=== PATIENT | female | born 1980 | race Caucasian/White ===

== ENCOUNTER → 2018-04-25 | Outpatient (CLI) | payer OTHER ==
--- NOTE | 2018-04-25 11:15 | US ---
EXAMINATION TYPE: Transabdominal DATE OF EXAM: 08/14/17 COMPARISON: NONE CLINICAL HISTORY: Z36 CONFIRM DATES. Confirm Dates, pt has no complaints at this time . Positive beta -hCG test. EXAM PERFORMED: Transvaginal (TV) and Transabdominal (TA) EXAM MEASUREMENTS: GESTATIONAL AGE / DATING Physician Established: (10 weeks/4 days) EDC: 11/17/2018 Dates by LMP: (10 weeks/4 days) EDC: 11/17/2018 Dates by First Scan: No prior Dates by Current Scan for: (5 weeks/6 days) EDC: 12/20/2018 MATERNAL ANATOMY Uterus: 10.5 x 5.0 x 6.1 cm Right Ovary: 3.3 x 1.9 x 2.7 cm Left Ovary: 3.4 x 2.0 x 3.2 cm Post CDS / Adnexa: wnl Presence of free fluid: No Presence of corpus luteal cyst: Left Ovary= 1.8 x 1.6 x 2.0 cm Presence of subchorionic bleed: No GESTATION / SURVEY CRL: Not visualized at this time MSD: 1.6 cm (5 weeks/6 days) Yolk Sac (normal less than 6mm): 3mm Heterogeneous anteverted uterus is present. Endometrium is thickened up to 33 mm. In the periphery th ere is irregular anechoic lesion measuring 1.7 x 1.2 x 1.3 cm. Within this there is 3 mm round hypere choic round structure. Findings could reflect gestational sac and yolk sac. No significant surroundin g decidual reaction is seen. Lobulated contour to gestational sac is also concerning. No pole i s present. No free fluid is seen in pelvic cul-de-sac. Both ovaries are identified. Within left ovary there is 1.8 cm round anechoic lesion with thin septa could reflect corpus luteal cyst. No suspicious extraovarian adnexal masses are present. IMPRESSION: Findings could reflect too early to visualize intrauterine but spontaneous is in d ifferential and ectopic is not excluded. Short-term serial beta hCG and ultrasound follow-u p is advised.
== END | disposition home or self-care (01) ==
LOC: RADUSWWP 09:39
PROVIDERS: ATTEND Obstetrics & Gynecology
DX: Z36.89 Encounter for other specified antenatal screening (principal)
CPT/HCPCS: 76801; 76817

== ENCOUNTER → 2018-04-27 | Outpatient (CLI) | payer OTHER | END | disposition home or self-care (01) | LOC: LABMAIN 12:40 | PROVIDERS: ATTEND Obstetrics & Gynecology | DX: O26.819 Pregnancy related exhaustion and fatigue, unspecified trimester (principal); Z3A.00 Weeks of gestation of pregnancy not specified | CPT/HCPCS: 36415; 84702 ==

== ENCOUNTER → 2018-04-29 | Outpatient (CLI) | payer OTHER | END | disposition home or self-care (01) | LOC: LABWHC1 11:06 | PROVIDERS: ATTEND Obstetrics & Gynecology | DX: Z34.80 Encounter for supervision of other normal pregnancy, unspecified trimester (principal) | CPT/HCPCS: 36415; 84702 ==

== ENCOUNTER → 2018-12-18 | Outpatient (CLI) | payer OTHER ==
--- NOTE | 2018-12-18 15:47 | US ---
EXAMINATION TYPE: Transabdominal DATE OF EXAM: 12/18/2018 3:34 PM COMPARISON: NONE CLINICAL HISTORY: Z36 CONFIRM DATES. Dates EXAM PERFORMED: Transabdominal (TA) EXAM MEASUREMENTS: GESTATIONAL AGE / DATING Dates by LMP: (11 weeks/6 days) EDC: 07/03/2019 Dates by Current Scan for: (11 weeks/5 days) EDC: 07/04/2019 MATERNAL ANATOMY Uterus: 14.5 x 8.1 x 6.5 cm Right Ovary: 2.8 x 1.5 x 1.5 cm Left Ovary: 3.1 x 1.9 x 1.7 cm Post CDS / Adnexa: no free fluid Presence of free fluid: no Presence of corpus luteal cyst: no Presence of subchorionic bleed: no GESTATION / SURVEY CRL: 5.0 cm (11 weeks/5 days) MSD: seen, not measured Yolk Sac (normal less than 6mm): Not visualized Heart Rate: 156 bpm Rhythm: Normal IUP: Live IUP Date of LMP: 09/26/2018, Single live IUP measuring 11 weeks 5 days IMPRESSION: Single live intrauterine with a sonographic age of 11 weeks and 5 days and estimated date o f delivery of 07/04/2019, concordant with menstrual age.
== END | disposition home or self-care (01) ==
LOC: RADUSWWP 14:54
PROVIDERS: ATTEND Obstetrics & Gynecology
DX: O09.511 Supervision of elderly primigravida, first trimester (principal); Z3A.11 11 weeks gestation of pregnancy
CPT/HCPCS: 76801

== ENCOUNTER 2019-07-01 00:57 | Inpatient (IN) | payer OTHER ==
[2019-07-01] MEDS: LACTATED RINGERS 1,000 ML IV SCH ×3 (01:35→10:23)
[2019-07-01] MEDS ORDERED: METHYLERGONOVINE 0.2 MG/ML 1 ML AMP IM PRN (01:40)
[2019-07-01] MEDS ORDERED: OXYTOCIN 10 UNIT/ML 1 ML VIAL IM PRN (01:40)
[2019-07-01] MEDS ORDERED: CARBOPROST TROMETHAMINE 250 MCG/ML 1 ML AMP IM PRN (01:40)
[2019-07-01] MEDS ORDERED: TERBUTALINE 1 MG/ML VIAL SQ PRN (01:40)
[2019-07-01] MEDS ORDERED: LIDOCAINE 0.5% (PF) 5 MG/ML (50 ML SDV) SQ PRN (01:40)
[2019-07-01 01:52] LABS: Basophils % (A) 0 %; Eosinophils % (A) 1 %; HCT 38.9 % (34.0-46.0); HGB 13.1 gm/dL (11.4-16.0); Lymphocytes # (A) 0.8 k/uL (1.0-4.8); Lymphocytes % (A) 10 %; MCH 31.6 pg (25.0-35.0); MCHC 33.8 g/dL (31.0-37.0); MCV 93.4 fL (80.0-100.0); Mean Platelet Volume 9.4; Monocytes # (A) 0.4 k/uL (0-1.0); Monocytes % (A) 6 %; Neutrophils # (A) 6.1 k/uL (1.3-7.7); Neutrophils % (A) 81 %; Platelet Count 182 k/uL (150-450); RBC 4.16 m/uL (3.80-5.40); RDW 13.8 % (11.5-15.5); WBC 7.5 k/uL (3.8-10.6)
--- NOTE | 2019-07-01 02:39 | P.HPOB ---
History of Present Illness H&P Date: 07/01/19 Chief Complaint: Leaking of fluid This patient is a 38-year-old 4 para 2 female estimated date of confinement 07/03/2019 estimated gestational age 39-5/7 weeks who presents to labor and delivery with complaints of gush of fluid at approximately 11:00 last evening. Patient's care is per Dr. Acevedo and is complicated by advanced maternal age. Patient did have first trimester genetic screening with the [facility] however did decline maternal medicine referral. Patient's had testing including nonstress testing and growth ultrasounds. Most recent ultrasound showed breech presentation patient was scheduled for a section in the near future. This evening patient's found to be grossly ruptured and bedside ultrasound confirms vertex presentation. Patient also throughout the days had some nausea and vomiting did call the office earlier today and was requested to come in if she could not keep anything down however she felt she was feeling better and therefore stayed at home. care also is complicated by hypothyroidism with apparent normal control as watched by her making department preparer. Review of Systems Gastrointestinal: Reports as per HPI Genitourinary: Reports Menstruation: Reports amenorrhea Past Medical History Past Medical History: Thyroid Disorder Additional Past Medical History / Comment(s): hypothyroid History of Any Multi-Drug Resistant Organisms: None Reported Additional Past Surgical History / Comment(s): Leep, breast augmentation, lasix Past Anesthesia/Blood Transfusion Reactions: No Reported Reaction Past Psychological History: No Psychological Hx Reported Smoking Status: Never smoker Past Alcohol Use History: None Reported Past Drug Use History: None Reported - Past Family History Mother Family Medical History: No Reported History Medications and Allergies Home Medications Medication Instructions Recorded Confirmed Type Levothyroxine Sodium [Synthroid] 1 tab PO ONCE 07/01/19 07/01/19 History Omeprazole [PriLOSEC] 1 tab PO ONCE 07/01/19 07/01/19 History Allergies Allergy/AdvReac Type Severity Reaction Status Date / Time No Known Allergies Allergy Verified 07/01/19 01:03 Exam Vital Signs Temp Pulse Resp BP Pulse Ox 07/01/19 01:44 96.5 F L 106 H 18 115/89 98 Intake and Output 06/30/19 06/30/19 07/01/19 14:59 22:59 06:59 Other: Weight 72.575 kg - OBG Physical Exam Abdomen: bowel sounds normal, no diffuse tenderness, no bruit present, no guarding noted, no hepatomegaly, no splenomegaly, no mass Vulva: both: normal Vagina: normal moisture, no discharge Cervix: no lesion (1 cm thick with gross rupture membranes vertex presentation), no discharge Uterus: enlarged (Cervix in the office was fingertip.) Results blood work shows she is O-, rubella low positive, RPR was nonreactive, hepatitis B was negative, Materni T 21 showed no evidence of trisomy chromosome 21, 18, or 13. Glucola was 98. Result Diagrams: 07/01/19 01:40 Abnormal Lab Results - Last 24 Hours (Table) 07/01/19 Range/Units 01:40 Lymphocytes # 0.8 L (1.0-4.8) k/uL Assessment and Plan Assessment: This is a 38-year-old 3 para 2 female 39-5/7 weeks gestation admitted to labor and delivery spontaneous rupture membranes. Plan is to begin Pitocin per protocol if patient does not have spontaneous labor. At this point we anticipa te vaginal delivery. (1) 39 weeks gestation of Current Visit: Yes Status: Acute Code(s): Z3A.39 - 39 WEEKS GESTATION OF SNOMED Code(s): 17373294 (2) Elderly multigravida Current Visit: Yes Status: Acute Code(s): O09.529 - SUPERVISION OF ELDERLY MULTIGRAVIDA, UNSPECIFIED TRIMESTER SNOMED Code(s): 966037987 (3) Spontaneous rupture of amniotic membranes Current Visit: Yes Status: Acute Code(s): KPK7579 - SNOMED Code(s): 506581628
[2019-07-01] MEDS ORDERED: OXYTOCIN 30 UNITS/500 ML NS 30 UNIT in SALINE 1 500ML.BAG IV SCH (03:45)
[2019-07-01] MEDS ORDERED: ACETAMINOPHEN TAB 500 MG TAB PO STA (09:28)
--- NOTE | 2019-07-01 16:02 | P.PROBDLV ---
Vaginal Delivery Note - . Vaginal Delivery Note: The patient progressed to complete dilation after oxytocin augmentation of labor. She received no pain medication during labor. Once reaching complete dilation, she began pushing. 's head came to a crown. With one further push, the 's head delivered across the perineum followed by the anterior shoulders and the remainder the body. was placed on mother's abdomen and nose and mouth were bulb suctioned. Brisk cry was noted immediately. Cord was clamped and cut and infant was taken to warmer for evaluation. A viable female infant is noted with scores of 9 at 1 minute and 9 at 5 minutes and infant weight of 6 lbs. 1 oz. Placenta delivered shortly thereafter, intact, with a three-vessel cord. Uterus contracted well after oxytocin was given and uterine massage was carried out. Inspection of the perineum revealed no perineal lacer ations. Estimated blood loss is approximately 100 mL's.
[2019-07-01] MEDS ORDERED: diphenhydrAMINE 50 MG CAP PO PRN (16:07)
[2019-07-01] MEDS ORDERED: ACETAMINOPHEN TAB 325 MG TAB PO PRN (16:07)
[2019-07-01] MEDS ORDERED: HYDROCORTISONE 2.5% RECTAL CREAM 30 GM TUBE RECTAL PRN (16:07)
[2019-07-01] MEDS ORDERED: ZOLPIDEM 5 MG TAB PO PRN (16:07)
[2019-07-01] MEDS ORDERED: WITCH HAZEL 1 EACH MED..PAD TOPICAL PRN (16:07)
[2019-07-01] MEDS ORDERED: MEASLES-MUMPS-RUBELLA VACC/PF 12,500 UNIT/0.5 ML VIAL SQ ONE (16:07)
[2019-07-01] MEDS ORDERED: BENZOCAINE/MENTHOL SPRAY 1 GM/SPRAY AEROSOL TOPICAL PRN (16:07)
[2019-07-01] MEDS ORDERED: diphenhydrAMINE 50 MG/ML 1 ML VIAL IVP PRN ×2 (16:07)
[2019-07-01] MEDS ORDERED: LANOLIN CREAM 5 GM TUBE TOPICAL PRN (16:07)
[2019-07-01] MEDS ORDERED: diphenhydrAMINE 25 MG CAP PO PRN (16:07)
[2019-07-01] MEDS ORDERED: SIMETHICONE 80 MG CHEWABLE PO PRN (16:07)
[2019-07-01] MEDS ORDERED: OXYTOCIN 20 UNITS/1000 ML NS 1,000 ML IV SCH (16:15)
[2019-07-01] MEDS ORDERED: Rhogam IMMUNE GLOBULIN 1,500 UNIT/1 ML IM ONE (18:10)
[2019-07-01] MEDS: IBUPROFEN 600 MG TAB PO PRN (19:39)
[2019-07-01] MEDS: SENNOSIDES-DOCUSATE SODIUM 1 EACH TAB PO SCH (20:54)
[2019-07-02] MEDS: IBUPROFEN 600 MG TAB PO PRN ×2 (03:56→15:40)
[2019-07-02] MEDS ORDERED: LEVOTHYROXINE 75 MCG TAB PO SCH (06:30)
[2019-07-02] MEDS ORDERED: PANTOPRAZOLE 40 MG TABLET PO SCH (07:30)
[2019-07-02 08:02] LABS: Basophils % (A) 0 %; Eosinophils # (A) 0.1 k/uL (0-0.7); Eosinophils % (A) 1 %; HCT 32.3 % (34.0-46.0); HGB 10.7 gm/dL (11.4-16.0); Lymphocytes % (A) 22 %; MCH 31.2 pg (25.0-35.0); MCHC 33.1 g/dL (31.0-37.0); MCV 94.1 fL (80.0-100.0); Mean Platelet Volume 10.2; Monocytes # (A) 0.7 k/uL (0-1.0); Monocytes % (A) 8 %; Neutrophils % (A) 67 %; Platelet Count 161 k/uL (150-450); RBC 3.43 m/uL (3.80-5.40); RDW 13.9 % (11.5-15.5)
--- NOTE | 2019-07-02 08:37 | P.DS ---
Providers Date of admission: 07/01/19 01:30 Expected date of discharge: 07/02/19 Attending physician: Zahraa Acevedo Primary care physician: Stated None Hospital Course: This is a 38-year-old female 4 para 2 at 39-5/7 weeks who presented with spontaneous rupture of membranes. She underwent oxytocin augmentation of labor and delivered vaginally a viable female with scores of 9 at 1 minute and 9 at 5 minutes and weight of 6 lbs. 1 oz. on 07/01/2019. Her course has been uncomplicated. She is out of feeding. Lochia is decreasing. Pain is well-controlled. Vital signs are stable. Abdomen is soft with fundus firm and nontender. Extremities show negative Homans. Impression is status post vaginal delivery day #1. Plan is to discharge home today. Routine instructions are given. She is advised to follow up in the office in 6 weeks for a check she will be given a prescription for ibuprofen. She is advised to call the office if she has any further questio ns or concerns prior to her appointment time.. Procedures: Oxytocin augmentation of labor Spontaneous vaginal delivery of a viable female on 07/01/2019 Patient Condition at Discharge: Stable Plan - Discharge Summary New Discharge Prescriptions: New Ibuprofen [Motrin] 600 mg PO Q6HR PRN #60 tab PRN Reason: Mild Pain Or Fever >= 100.5 No Action Omeprazole [PriLOSEC] 1 tab PO ONCE Levothyroxine Sodium [Synthroid] 1 tab PO ONCE Discharge Medication List Levothyroxine Sodium [Synthroid] 1 tab PO ONCE 07/01/19 [History] Omeprazole [PriLOSEC] 1 tab PO ONCE 07/01/19 [History] Ibuprofen [Motrin] 600 mg PO Q6HR PRN #60 tab 07/02/19 [Rx] Follow up Appointment(s)/Referral(s): Zahraa Acevedo DO [Doctor of Osteopathic Medicine] - 6 Weeks Discharge Disposition: HOME SELF-CARE
[2019-07-02] MEDS: SENNOSIDES-DOCUSATE SODIUM 1 EACH TAB PO SCH (08:57)
[2019-07-02 15:50] VITALS: BP 93/64; PULSE 91; RESP 16; TEMP 97.9
--- NOTE | 2019-07-03 13:17 | P.MSEPDOC ---
Presenting Problems - Arrival Data Date of Arrival on Unit: 07/01/19 Time of Arrival on Unit: 01:00 Mode of Transport: Ambulatory - Complaint OB-Reason for Admission/Chief Complaint: Rule Out SROM Comment: SROM around 2300, clear fluid Medical History - Information : 4 Para: 2 Term: 2 : 0 Abortions: Spontaneous or Elective: 1 Number of Living Children: 2 - Gestational Age Gestational Age by NITESH (wks/days): 39 Weeks and 5 Days Review of Systems - Review of Systems Constitutional: No problems Breast: No problems ENT: No problems Cardiovascular: No problems Respiratory: No problems Gastrointestinal: No problems Genitourinary: No problems Musculoskeletal: No problems Neurological: No problems Skin: No problems Vital Signs - Temperature Temperature: 97.9 F Temperature Source: Axillary - Pulse Pulse Oximetery Pulse Rate: 91 Pulse Assessment Method: Auscultation - Respirations Respiratory Rate: 16 Oxygen Delivery Method: Room Air - Blood Pressure Right Arm Blood Pressure: 93/64 Blood Pressure Mean: 73 Blood Pressure Source: Automatic Cuff Medical Screen Scoring (Pre) - Cervical Exam Dilation: 1-3 cm = 1 Membranes: Ruptured = 3 - Uterine Contractions Frequency: N/A Duration: N/A Intensity: N/A - Maternal Vital Signs Maternal Temperature: N/A Maternal Blood Pressure: N/A Signs of Preeclampsia: N/A Maternal Respirations: N/A - Maternal Trauma Maternal Trauma: N/A - Assessment - Baby A Baseline FHR: 160 Heart Rate - NICHD Category: Category II (Indeterminate) = 3 NST: Non-reactive = 3 Position: N/A Station: N/A - Total Score - Baby A Total Score - Baby A: 10 - Total Score - Baby B Total Score - Baby B: 4 - Total Score - Baby C Total Score - Baby C: 4 - Level of Risk - Baby A Level of Risk - Baby A: High (10+) - Level of Risk - Baby B Level of Risk - Baby B: Low (0-5) - Level of Risk - Baby C Level of Risk - Baby C: Low (0-5) Physician Notification (Pre) - Physician Notified Physician Notified Date: 07/01/19 Physician Notified Time: 01:28 New Order Received: Yes (admit) - Notification Comment Comment: Dr. Espinoza called, report given on maternal status, SROM since 2299, pt is. scheduled for a c/s on sunday because of breech, sterile vag exam , presenting. part appears hard like a head but unable to feel any sutures or fontanels. Orders to. admit pt, start an IV, and Dr. Espinoza will come in to scan pt will u/s and determine. position. Disposition - Disposition OB Disposition: Admit, LDRP Suite Discharge Date: 07/02/19 Discharge Time: 17:30 I agree with the RN Medical Screening Exam: Yes Risk & Benefit of care provided described in d/c instruction: Yes Diagnosis: ENCOUNTER FOR FULL-TERM UNCOMPLICATED DELIVERY
== END 2019-07-02 17:30 | disposition home or self-care (01) | DRG 807 ==
LOC: FBPOP 00:57 → 4FBP 01:30
PROVIDERS: ADMIT Obstetrics & Gynecology; ATTEND Obstetrics & Gynecology
PROC: 10E0XZZ Delivery of Products of Conception, External Approach (ICD-10-PCS; principal; 2019-07-01)
PROC: 3E0234Z Introduction of Serum, Toxoid and Vaccine into Muscle, Percutaneous Approach (ICD-10-PCS; principal; 2019-07-01)
DX: O99.284 Endocrine, nutritional and metabolic diseases complicating childbirth (principal); Z37.0 Single live birth; E03.9 Hypothyroidism, unspecified; Z3A.39 39 weeks gestation of pregnancy; Z79.899 Other long term (current) drug therapy; O26.893 Other specified pregnancy related conditions, third trimester; Z67.91 Unspecified blood type, Rh negative
CPT/HCPCS: 59025; 84112; 85025; 85461; 86850; 86870; 86880; 86900; 86901; 88307; 90471; 90707; 99213

== ENCOUNTER → 2020-04-07 | Outpatient (CLI) | payer OTHER ==
--- NOTE | 2020-04-08 08:05 | US ---
EXAMINATION TYPE: Transabdominal DATE OF EXAM: 04/07/2020 3:48 PM COMPARISON: NONE CLINICAL HISTORY: Z36 CONFIRM DATES. Confirm Dates, pt has no complaints at this time EXAM PERFORMED: Transabdominal (TA) EXAM MEASUREMENTS: GESTATIONAL AGE / DATING Physician Established: (12 weeks/6 days) EDC: 10/14/2020 Dates by LMP: (12 weeks/6 days) EDC: 10/14/2020 Dates by First Scan: No prior Dates by Current Scan for: (12 weeks/2 days) EDC: 10/18/2020 MATERNAL ANATOMY Uterus: 11.7 x 7.3 x 10.3 cm Right Ovary: 2.8 x 2.0 x 2.8 cm Left Ovary: 2.8 x 1.6 x 2.5 cm Post CDS / Adnexa: wnl Presence of free fluid: No Presence of corpus luteal cyst: Right Ovary= 1.6 x 1.5 x 1.5 cm Presence of subchorionic bleed: No GESTATION / SURVEY CRL: 5.8 cm (12 weeks/2 days) MSD: wnl Heart Rate: 166 bpm Rhythm: Normal IUP: Viable IUP Nuchal Translucency 10-14wks (normal less than 3mm): 2mm Date of LMP: 01/08/2020 IMPRESSION: Single, viable IUP/ No abnormality visualized at this time
== END | disposition home or self-care (01) ==
LOC: RADUSWWP 15:34
PROVIDERS: ATTEND Obstetrics & Gynecology
DX: Z36.89 Encounter for other specified antenatal screening (principal); Z3A.12 12 weeks gestation of pregnancy
CPT/HCPCS: 76801; 76813

== ENCOUNTER 2020-10-14 11:05 | Inpatient (IN) | payer OTHER ==
[2020-10-18] MEDS ORDERED: METHYLERGONOVINE 0.2 MG/ML 1 ML AMP IM PRN (06:38)
[2020-10-18] MEDS ORDERED: TERBUTALINE 1 MG/ML VIAL SQ PRN (06:38)
[2020-10-18] MEDS ORDERED: CARBOPROST TROMETHAMINE 250 MCG/ML 1 ML AMP IM PRN (06:38)
[2020-10-18] MEDS ORDERED: LIDOCAINE 0.5% (PF) 5 MG/ML (50 ML SDV) SQ PRN (06:38)
[2020-10-18] MEDS ORDERED: OXYTOCIN 10 UNIT/ML 1 ML VIAL IM PRN (06:38)
[2020-10-18] MEDS ORDERED: OXYTOCIN 30 UNITS/500 ML NS 30 UNIT in SALINE 1 500ML.BAG IV SCH ×2 (06:45→21:44)
[2020-10-18] MEDS: LACTATED RINGERS 1,000 ML IV SCH ×2 (07:01→14:06)
[2020-10-18 07:21] LABS: Basophils % (A) 0 %; Eosinophils # (A) 0.1 k/uL (0-0.7); Eosinophils % (A) 1 %; HCT 34.3 % (34.0-46.0); HGB 11.8 gm/dL (11.4-16.0); Lymphocytes # (A) 2.2 k/uL (1.0-4.8); Lymphocytes % (A) 25 %; MCH 32.1 pg (25.0-35.0); MCHC 34.3 g/dL (31.0-37.0); MCV 93.5 fL (80.0-100.0); Mean Platelet Volume 10.2; Monocytes # (A) 0.6 k/uL (0-1.0); Monocytes % (A) 6 %; Neutrophils % (A) 66 %; Platelet Count 169 k/uL (150-450); RBC 3.66 m/uL (3.80-5.40); RDW 13.9 % (11.5-15.5); WBC 9.1 k/uL (3.8-10.6)
--- NOTE | 2020-10-18 16:49 | P.HPOB ---
History of Present Illness H&P Date: 10/18/20 Chief Complaint: Induction of labor This is a 39 y.o. female, 5, para 3, with an estimated date of confinement of 10/14/2020, estimated gestational age of 40-4/7 weeks, who presents for induction of labor. Her baby was breech up until her last visit last week. Her last official US showed an EFW of 5#8oz, 13th percentile. She has been doing twice weekly NSTs for advanced maternal age. She is feeling occasional contractions. labs: GC/Chlamydia/Trich-neg Hepatitis B surface antigen-neg RPR-NR Rubella-immune Blood type-O neg Antibody screen-neg Hgb-12.1 Random glucose-89 Toxoplasma-neg EdakmitE35-tvc MSAFP-neg for NTD 1 hr. GTT-90 Rhogam given at 28 weeks GBS-neg OB Hx: . History of 3 vaginal deliveries. 1 miscarriage. 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 Hx. LEEP-2002. Review of Systems Constitutional: Denies chills, Denies fever Eyes: denies blurred vision, denies pain Ears, nose, mouth and throat: Denies headache, Denies sore throat Cardiovascular: Denies chest pain, Denies shortness of breath Respiratory: Denies cough Gastrointestinal: Reports abdominal pain (irregular contractions) Genitourinary: Reports pelvic pain, Reports Musculoskeletal: Reports low back pain Integumentary: Denies pruritus, Denies rash Neurological: Denies numbness, Denies weakness Psychiatric: Denies anxiety, Denies depression Past Medical History Past Medical History: GERD/Reflux, Thyroid Disorder Additional Past Medical History / Comment(s): hypothyroid History of Any Multi-Drug Resistant Organisms: None Reported Additional Past Surgical History / Comment(s): Leep, breast augmentation, lasix Past Anesthesia/Blood Transfusion Reactions: No Reported Reaction Past Psychological History: Anxiety Smoking Status: Former smoker Past Alcohol Use History: None Reported Past Drug Use History: None Reported - Past Family History Mother Family Medical History: No Reported History Medications and Allergies Home Medications Medication Instructions Recorded Confirmed Type Levothyroxine Sodium [Synthroid] 1 tab PO ONCE 07/01/19 10/18/20 History Omeprazole [PriLOSEC] 1 tab PO ONCE 07/01/19 10/18/20 History Pnv No.95/Ferrous Fum/Folic AC 1 each PO DAILY 10/18/20 10/18/20 History [ Multivitamin Tablet] Allergies Allergy/AdvReac Type Severity Reaction Status Date / Time No Known Allergies Allergy Verified 10/18/20 06:37 Exam Osteopathic Statement: *. No significant issues noted on an osteopathic structural exam other than those noted in the History and Physical/Consult. Vital Signs Temp Pulse Resp BP Pulse Ox 10/18/20 06:53 98.3 F 112 H 16 141/92 98 Intake and Output 10/18/20 10/18/20 10/18/20 06:59 14:59 22:59 Other: # Voids 3 Weight 75.296 kg HEENT: within normal limits Heart: regular rate and rhythm Lungs: clear to auscultation bilaterally Abdomen: , non-tender Cervix: 1.5 cm/70%/-3 (vtx confirmed by bedside US). heart tones: category 1 Contractions: irregular Extremities: neg. Colton's. Results Result Diagrams: 10/18/20 06:50 Abnormal Lab Results - Last 24 Hours (Table) 10/18/20 Range/Units 06:50 RBC 3.66 L (3.80-5.40) m/uL Assessment and Plan (1) 40 weeks gestation of Current Visit: Yes Status: Acute Code(s): Z3A.40 - 40 WEEKS GESTATION OF SNOMED Code(s): 80523030 (2) Elderly multigravida Current Visit: No Status: Acute Code(s): O09.529 - SUPERVISION OF ELDERLY MULTIGRAVIDA, UNSPECIFIED TRIMESTER SNOMED Code(s): 992586891 Plan: Proceed with oxytocin induction of labor. Expectant management.
--- NOTE | 2020-10-18 21:28 | P.PROBDLV ---
Vaginal Delivery Note - . Vaginal Delivery Note: The patient progressed to complete dilation after oxytocin induction of labor and artificial rupture membranes with clear fluid noted. Once reaching complete dilation, she began pushing. Infant's head came to a crown. With one further push, the 's head delivered across the perineum followed immediately by the remainder of the body. It was a nuchal cord 2 that was reduced around the 's head after delivery. There was also a cord around a foot. Nose and mouth were bulb suctioned after delivery. Cord was clamped and cut and infant was taken to warmer for evaluation. A viable male was noted with scores of 9 at 1 minute and 9 at 5 minutes and weight was 5 lbs. 15 oz. Placenta delivered shortly thereafter, intact, with a three-vessel cord. Uterus contracted well after oxytocin was given and uterine massage was carried out. Inspection of the perineum revealed no perineal lacerations. Estimated blood loss is approximately 100 mL's. Both mother and are in stable condition.
[2020-10-18] MEDS ORDERED: ZOLPIDEM 5 MG TAB PO PRN (21:44)
[2020-10-18] MEDS ORDERED: HYDROCORTISONE 2.5% RECTAL CREAM 30 GM TUBE RECTAL PRN (21:44)
[2020-10-18] MEDS ORDERED: diphenhydrAMINE 50 MG/ML 1 ML VIAL IVP PRN ×2 (21:44)
[2020-10-18] MEDS ORDERED: LANOLIN CREAM 5 GM TUBE TOPICAL PRN (21:44)
[2020-10-18] MEDS ORDERED: BENZOCAINE/MENTHOL SPRAY 1 GM/SPRAY AEROSOL TOPICAL PRN (21:44)
[2020-10-18] MEDS ORDERED: diphenhydrAMINE 25 MG CAP PO PRN (21:44)
[2020-10-18] MEDS ORDERED: SIMETHICONE 80 MG CHEWABLE PO PRN (21:44)
[2020-10-18] MEDS ORDERED: diphenhydrAMINE 50 MG CAP PO PRN (21:44)
[2020-10-18] MEDS: IBUPROFEN 600 MG TAB PO SCH (22:07)
[2020-10-18] MEDS: SENNOSIDES-DOCUSATE SODIUM 1 EACH TAB PO SCH (22:12)
[2020-10-19] MEDS: ACETAMINOPHEN TAB 325 MG TAB PO PRN ×2 (03:14→10:37)
[2020-10-19] MEDS ORDERED: Rhogam IMMUNE GLOBULIN 1,500 UNIT/1 ML IM ONE (04:26)
[2020-10-19] MEDS: IBUPROFEN 600 MG TAB PO SCH ×4 (05:47→19:34)
[2020-10-19 06:45] LABS: Basophils % (A) 0 %; Eosinophils # (A) 0.1 k/uL (0-0.7); Eosinophils % (A) 1 %; HCT 31.5 % (34.0-46.0); HGB 10.8 gm/dL (11.4-16.0); Lymphocytes # (A) 1.8 k/uL (1.0-4.8); Lymphocytes % (A) 14 %; MCH 32.4 pg (25.0-35.0); MCHC 34.3 g/dL (31.0-37.0); MCV 94.3 fL (80.0-100.0); Monocytes # (A) 0.7 k/uL (0-1.0); Monocytes % (A) 6 %; Neutrophils # (A) 10.2 k/uL (1.3-7.7); Neutrophils % (A) 79 %; Platelet Count 153 k/uL (150-450); RBC 3.33 m/uL (3.80-5.40); RDW 13.8 % (11.5-15.5)
--- NOTE | 2020-10-19 09:11 | P.PNOBGVD ---
Subjective - Subjective Principal diagnosis: Status post vaginal delivery day #1 Interval history: Patient is doing well. She is bottle feeding. Lochia is decreasing. She has having some cramping that is resolved with Motrin and Tylenol. Patient reports: Reports appetite normal, Reports voiding normally, Reports pain well controlled, Reports ambulating normally [place]: doing well, bottle feeding Objective - Latest Vital Signs Latest vital signs: Vital Signs Temp Pulse Resp BP Pulse Ox 10/19/20 07:33 98 F 67 15 102/62 98 10/19/20 04:00 98.6 F 81 16 97/55 10/19/20 00:00 98.3 F 74 16 120/59 10/18/20 23:25 98.3 F 81 16 104/62 10/18/20 22:45 74 16 120/59 10/18/20 22:25 80 16 128/92 10/18/20 22:10 69 16 118/69 10/18/20 21:55 74 16 117/66 10/18/20 21:40 71 16 118/61 10/18/20 21:25 98.0 F 83 16 130/68 Intake and Output 10/18/20 10/19/20 10/19/20 22:59 06:59 14:59 Intake Total 250.5 Balance 250.5 Intake: Intake, IV Titration 250.5 Amount Oxytocin 30 Units/500 ml 250.5 Ns 30 unit In Saline 1 500ml.bag @ Per Protocol IV .Q0M [facility] Rx#:[id number] Other: # Voids 1 1 - Exam Extremities: Present: normal. Absent: tenderness Abdomen: Present: normal appearance, soft. Absent: distention, tenderness Uterus: Present: normal, firm. Absent: tenderness - Labs Labs: Abnormal Lab Results - Last 24 Hours (Table) 10/19/20 Range/Units 06:18 WBC 13.0 H (3.8-10.6) k/uL RBC 3.33 L (3.80-5.40) m/uL Hgb 10.8 L (11.4-16.0) gm/dL Hct 31.5 L (34.0-46.0) % Neutrophils # 10.2 H (1.3-7.7) k/uL Assessment and Plan Assessment: Status post vaginal delivery day #1 (1) 40 weeks gestation of Current Visit: Yes Status: Acute Code(s): Z3A.40 - 40 WEEKS GESTATION OF PRE GNANCY SNOMED Code(s): 06328726 (2) Elderly multigravida Current Visit: No Status: Acute Code(s): O09.529 - SUPERVISION OF ELDERLY MULTIGRAVIDA, UNSPECIFIED TRIMESTER SNOMED Code(s): 585363798 Plan: Continue with care today. Anticipate discharge home tomorrow.
[2020-10-19] MEDS: SENNOSIDES-DOCUSATE SODIUM 1 EACH TAB PO SCH ×2 (10:15→19:34)
[2020-10-19] MEDS: LEVOTHYROXINE 75 MCG TAB PO SCH (11:13)
[2020-10-20 01:33] VITALS: RESP 16
[2020-10-20] MEDS: LEVOTHYROXINE 75 MCG TAB PO SCH (07:32)
[2020-10-20] MEDS: SENNOSIDES-DOCUSATE SODIUM 1 EACH TAB PO SCH (07:32)
[2020-10-20] MEDS: IBUPROFEN 600 MG TAB PO SCH (07:32)
[2020-10-20 07:49] VITALS: BP 104/71; PULSE 70; TEMP 97.7
--- NOTE | 2020-10-20 08:51 | P.DS ---
Providers Date of admission: 10/18/20 06:20 Expected date of discharge: 10/20/20 Attending physician: Zahraa Acevedo Primary care physician: Lindsey Paige - Discharge Diagnosis(es) (1) 40 weeks gestation of Current Visit: Yes Status: Acute (2) Elderly multigravida Current Visit: No Status: Acute Hospital Course: This is a 39-year-old female 5 para 3 at 40-4/7 weeks who presented for induction of labor. She underwent oxytocin induction of labor and delivered vaginally a viable male with scores of 9 at 1 minute and 9 at 5 minutes and weight of 5 lbs. 15 oz. Her course has been essentially uncomplicated. Lochia is decreasing. She is bottle feeding. Vital signs are stable. Abdomen is soft with fundus firm and nontender. Extremities show negative Homans. Impression is status post vaginal delivery day #2. Plan is to discharge home today. Routine instructions are given. She is advised follow-up in the office in 6 weeks for a check. She is advised to call the office if she has any further questions or concerns prior to her appointment time. She will be given a prescription for ibuprofen. Procedures: Oxytocin induction of labor Spontaneous vaginal delivery of a viable male on 10/18/2020 Patient Condition at Discharge: Stable Plan - Discharge Summary New Discharge Prescriptions: No Action Omeprazole [PriLOSEC] 1 tab PO ONCE Levothyroxine Sodium [Synthroid] 1 tab PO ONCE Pnv No.95/Ferrous Fum/Folic AC [ Multivitamin Tablet] 1 each PO DAILY Discharge Medication List Levothyroxine Sodium [Synthroid] 1 tab PO ONCE 07/01/19 [History] Omeprazole [PriLOSEC] 1 tab PO ONCE 07/01/19 [History] Pnv No.95/Ferrous Fum/Folic AC [ Multivitamin Tablet] 1 each PO DAILY 10/18/20 [History] Follow up Appointment(s)/Referral(s): Zahraa Acevedo DO [Doctor of Osteopathic Medicine] - 11/25/20 4:00 pm
== END 2020-10-20 11:45 | disposition home or self-care (01) | DRG 807 ==
LOC: 4FBP 10-18 06:20
PROVIDERS: ADMIT Obstetrics & Gynecology; ATTEND Obstetrics & Gynecology
PROC: 10E0XZZ Delivery of Products of Conception, External Approach (ICD-10-PCS; principal; 2020-10-18)
PROC: 3E033VJ Introduction of Other Hormone into Peripheral Vein, Percutaneous Approach (ICD-10-PCS; 2020-10-18)
DX: O48.0 Post-term pregnancy (principal); Z37.0 Single live birth; O69.81X0 Labor and delivery complicated by cord around neck, without compression, not applicable or unspecified; E03.9 Hypothyroidism, unspecified; O99.284 Endocrine, nutritional and metabolic diseases complicating childbirth; Z3A.40 40 weeks gestation of pregnancy; Z87.891 Personal history of nicotine dependence
CPT/HCPCS: 85025; 85461; 86850; 86900; 86901